=== PATIENT | male | born 1935 | race African-American/Black ===

== ENCOUNTER 2021-12-05 17:51 | Inpatient (IN) | payer MEDICARE, OTHER ==
[~2021-12-05] VITALS: Ht 180.3 cm; Wt 74.8 kg
[2021-12-05] MEDS ORDERED: SODIUM CHLORIDE 0.9% 1,000 ML IV ONE (18:30)
[2021-12-05 20:16] LABS: HEMATOCRIT. 39.1 % (42.0-52.0); HEMOGLOBIN. 13.2 g/dL (14.0-18.0); MEAN CORPUSCULAR HEMOGLOBIN 26.7 pg (28.0-32.0); MEAN CORPUSCULAR VOLUME 78.9 fL (80.0-94.0); MEAN PLATELET VOLUME 9.2 fl (7.4-10.4); PLATELET 267 x1000/uL (130-400); RED BLOOD CELL COUNT 4.96 mill/uL (4.7-6.1); RED CELL DISTRIBUTION WIDTH 14.5 % (11.6-14.6)
[2021-12-05 20:24] LABS: CHLORIDE 103 mEq/L (98-107)
[2021-12-05] MEDS ORDERED: CLINDAMYCIN 600 MG in DEXTROSE 5% WATER 50 ML IV ONE (21:00)
[2021-12-05] MEDS ORDERED: MAGNESIUM 1 G PREMIX 100 ML IV ONE (21:00)
[2021-12-05] MEDS ORDERED: CEFTRIAXONE 1 G PREMIX 50 ML IV ONE (21:00)
[2021-12-05] MEDS ORDERED: SODIUM CHLORIDE 0.9% 500 ML IV ONE (21:30)
[2021-12-05] MEDS ORDERED: CLINDAMYCIN 600MG PREMIX 50 ML IV NR (21:45)
[2021-12-05 23:26] LABS: PLATELET ESTIMATE NORMAL
[2021-12-06] MEDS ORDERED: CLONIDINE 0.1MG TABLET PO NR
[2021-12-06 00:47] LABS: CLARITY URINE CLEAR (CLEAR); COLOR URINE YELLOW (YELLOW); KETONES URINE 2+ (NEGATIVE); LEUKOCYTE ESTERASE URINE NEGATIVE (NEGATIVE); NITRITE URINE NEGATIVE (NEGATIVE); OCCULT BLOOD URINE 2+ (NEGATIVE); PH URINE 5.5 (4.5-8.0); PROTEIN URINE 2+ (NEGATIVE); SPECIFIC GRAVITY URINE 1.029 (1.005-1.030)
[2021-12-06 02:06] LABS: *AMPHETAMINES SCREEN URINE NEGATIVE (NEGATIVE); *BARBITURATES SCREEN URINE PRESUMTIVE POSITIVE (NEGATIVE)
[2021-12-06 02:07] LABS: *BENZODIAZEPINES SCREEN URINE NEGATIVE (NEGATIVE); *COCAINE SCREEN URINE NEGATIVE (NEGATIVE); CANNABINOID URINE SCREEN NEGATIVE (NEGATIVE); METHADONE URINE SCREEN NEGATIVE (NEGATIVE); OPIATES URINE SCREEN NEGATIVE (NEGATIVE); PHENCYCLIDINE URINE SCREEN NEGATIVE (NEGATIVE)
[2021-12-06 04:12] VITALS: BP 161/77
[2021-12-06] MEDS ORDERED: DEXTROSE 50% WATER 50ML SYRINGE IV PRN (05:30)
[2021-12-06] MEDS ORDERED: ACETAMINOPHEN 325MG TABLET PO PRN (05:30)
[2021-12-06] MEDS: INSULIN LISPRO 100 UNITS/ML SUBCUT SCH ×2 (06:40→12:30)
[2021-12-06] MEDS: BLOOD SUGAR DIAGNOSTIC STRIP TEST SCH ×2 (06:40→11:40)
[2021-12-06] MEDS ORDERED: PANTOPRAZOLE 40MG DR TABLET PO SCH (07:10)
[2021-12-06 08:00] VITALS: BP 153/91
[2021-12-06] MEDS ORDERED: HEPARIN 5000 UNITS/ML VIAL SUBCUT SCH (09:00)
[2021-12-06] MEDS ORDERED: ASPIRIN 81MG TABLET PO SCH (09:00)
[2021-12-06] MEDS ORDERED: LOSARTAN POTASSIUM 100 MG TABLET PO SCH (09:00)
[2021-12-06 10:00] VITALS: BP 147/86
[2021-12-06] MEDS ORDERED: HYDR25TA MT (10:39)
[2021-12-06] MEDS ORDERED: GABA-533 MT (10:39)
[2021-12-06] MEDS ORDERED: GLIP10TA10 MT (10:39)
[2021-12-06] MEDS ORDERED: TERA5CAP4 MT (10:39)
[2021-12-06] MEDS ORDERED: PRIM50TA31 PO (10:39)
[2021-12-06] MEDS ORDERED: MIRT-90 MT (10:39)
[2021-12-06] MEDS ORDERED: ALLO100T MT (10:39)
[2021-12-06] MEDS ORDERED: AMLO5TAB88 MT (10:39)
[2021-12-06] MEDS ORDERED: MAGN400C MT (10:39)
[2021-12-06] MEDS ORDERED: METO-539 MT (10:39)
[2021-12-06] MEDS ORDERED: MULT-1146 MT (10:39)
[2021-12-06] MEDS ORDERED: MONT10TA32 PO (10:39)
[2021-12-06] MEDS ORDERED: TRAZ-251 MT (10:39)
[2021-12-06] MEDS ORDERED: ATOR20TA65 PO (10:39)
[2021-12-06 11:21] LABS: BASOPHILS % 0.3 % (0.0-2.0); EOSINOPHILS % 0.6 % (0.0-5.0); HEMATOCRIT. 37.3 % (42.0-52.0); HEMOGLOBIN. 12.8 g/dL (14.0-18.0); LYMPHOCYTES % 9.8 % (20.0-50.0); MEAN CORPUSCULAR HEMOGLOBIN 26.6 pg (28.0-32.0); MEAN CORPUSCULAR VOLUME 77.6 fL (80.0-94.0); MEAN PLATELET VOLUME 9.1 fl (7.4-10.4); NEUTROPHILS % 80.3 % (40.0-76.0); PLATELET 288 x1000/uL (130-400); RED CELL DISTRIBUTION WIDTH 14.8 % (11.6-14.6)
[2021-12-06 12:07] LABS: CHLORIDE 108 mEq/L (98-107)
[2021-12-06 12:17] LABS: LDL CHOLESTEROL 61 mg/dL (5-100)
[2021-12-06 12:18] LABS: HDL CHOLESTEROL 24 mg/dL (40-59)
[2021-12-06] MEDS ORDERED: HALOPERIDOL LACTATE 5MG/ML VIAL IM SCH (12:45)
[2021-12-06] MEDS ORDERED: ATORVASTATIN CALCIUM 40MG TABLET PO SCH (21:00)
== END 2021-12-06 13:45 | disposition left against medical advice (07) | DRG 871 ==
LOC: ER 17:51 → MICUSO 21:22 → EDBEDREQ 21:25 → EDBEDREQTM 21:25 → 8WST 12-06 03:39
PROVIDERS: ADMIT Internal Medicine; ATTEND Internal Medicine
DX: A41.9 Sepsis, unspecified organism (principal); G93.41 Metabolic encephalopathy; M86.8X7 Other osteomyelitis, ankle and foot; D64.9 Anemia, unspecified; E11.621 Type 2 diabetes mellitus with foot ulcer; E11.65 Type 2 diabetes mellitus with hyperglycemia; E11.69 Type 2 diabetes mellitus with other specified complication; F03.90 Unspecified dementia, unspecified severity, without behavioral disturbance, psychotic disturbance, mood disturbance, and anxiety; I10 Essential (primary) hypertension; I49.3 Ventricular premature depolarization; Z20.822 Contact with and (suspected) exposure to COVID-19; L97.529 Non-pressure chronic ulcer of other part of left foot with unspecified severity; Z53.29 Procedure and treatment not carried out because of patient's decision for other reasons; N28.9 Disorder of kidney and ureter, unspecified; W18.39XA Other fall on same level, initial encounter; Y93.89 Activity, other specified; Z85.72 Personal history of non-Hodgkin lymphomas; Y92.89 Other specified places as the place of occurrence of the external cause; Y99.8 Other external cause status
CPT/HCPCS: 36415; 71045; 73521; 73630; 80048; 80053; 80061; 80305; 81003; 82962; 83605; 83880; 84484; 85025; 86140; 87426; 99285; J0696; J1630; J1644; J1815; J3475; J3490; J7030; J7040; J7060

== ENCOUNTER 2024-08-10 06:13 | Inpatient (IN) | payer MEDICARE, OTHER ==
[~2024-08-10] VITALS: Ht 172.7 cm; Wt 68.9 kg
[~2024-08-10 06:13] MED LIST: ALLO100T MT; AMLO5TAB88 MT; ATOR20TA65 PO; GABA-534 MT; GLIP10TA17 MT; HYDR25TA MT; MAGN400C MT; METO-539 MT; MIRT-90 MT; MONT-39 PO; MULT-1146 MT; PRIM50TA5 PO; TERA5CAP4 MT; TRAZ-251 MT
[2024-08-10 06:24] VITALS: O2SAT 100
[2024-08-10 07:41] LABS: HEMATOCRIT. 34.1 % (42.0-52.0); HEMOGLOBIN. 10.7 g/dL (14.0-18.0); MEAN CORPUSCULAR HEMOGLOBIN 27.2 pg (28.0-32.0); MEAN CORPUSCULAR HGB CONC 31.3 g/dL (31.0-37.0); MEAN CORPUSCULAR VOLUME 86.7 fL (80.0-94.0); MEAN PLATELET VOLUME 9.9 fl (7.4-10.4); PLATELET 241 x1000/uL (130-400); RED BLOOD CELL COUNT 3.93 mill/uL (4.7-6.1); WHITE BLOOD COUNT 13.5 x1000/uL (4.5-11.0)
[2024-08-10 07:51] LABS: CARBON DIOXIDE 27 mEq/L (21-32); CHLORIDE 102 mEq/L (98-107); POTASSIUM 3.4 mEq/L (3.5-5.1); SODIUM 140 mEq/L (136-145)
[2024-08-10 07:52] LABS: CALCIUM 9.5 mg/dL (8.7-10.4)
[2024-08-10 07:57] LABS: CREATININE 1.8 mg/dL (0.6-1.3); GLUCOSE 251 mg/dL (70-105); UREA NITROGEN BLOOD 22 mg/dL (9-23)
[2024-08-10 07:58] LABS: TROPONIN I HIGH SENSITIVITY 14 ng/L (3.0-53)
[2024-08-10 09:08] LABS: DIFFERENTIAL COMMENT 1
[2024-08-10] MEDS ORDERED: HYDROCODONE/ACETAMINOPHEN 5/325MG TABLET PO PRN (16:00)
[2024-08-10] MEDS ORDERED: IPRATROPIUM/ALBUTEROL 0.5-3(2.5)MG/3ML NEB HHN PRN (16:00)
[2024-08-10] MEDS ORDERED: NALOXONE HCL 0.4MG/ML VIAL IV PRN (16:00)
[2024-08-10] MEDS ORDERED: ONDANSETRON HCL 4MG/2ML INJ IV PRN (16:00)
[2024-08-10 16:16] VITALS: BP 157/74; PULSE 89; RESP 20; TEMP 36.5848
[2024-08-10 16:55] LABS: ANISOCYTOSIS 1+; PLATELET ESTIMATE NN
[2024-08-10 17:00] VITALS: BP 156/77; PULSE 83; RESP 16; O2SAT 99
[2024-08-10] MEDS: GABAPENTIN 400MG CAPSULE PO SCH (17:15)
[2024-08-10] MEDS: PRIMIDONE 50MG TABLET PO SCH (17:28)
[2024-08-10] MEDS: ENOXAPARIN 30MG/0.3ML SYR SUBCUT SCH (17:29)
[2024-08-10] MEDS: AMLODIPINE 5MG TABLET PO SCH (17:31)
[2024-08-10 20:00] VITALS: BP 152/58; PULSE 80; RESP 17; TEMP 36.44736; O2SAT 98
[2024-08-10] MEDS ORDERED: DEXTROSE 50% WATER 50ML SYRINGE IV PRN (20:15)
[2024-08-10] MEDS: BLOOD SUGAR DIAGNOSTIC STRIP TEST SCH (21:00)
[2024-08-10] MEDS: CEFTRIAXONE 1GM/50ML 50 ML IV SCH (21:42)
[2024-08-10] MEDS: TERAZOSIN HCL 5MG CAPSULE PO SCH (21:43)
[2024-08-10] MEDS: ATORVASTATIN CALCIUM 20MG TABLET PO SCH (21:43)
[2024-08-10] MEDS: INSULIN LISPRO 100 UNITS/ML SUBCUT SCH (22:04)
[2024-08-10 22:34] LABS: CLARITY URINE CLEAR (CLEAR); COLOR URINE DARK YELLOW (YELLOW); GLUCOSE URINE 2+ (NEGATIVE); KETONES URINE 1+ (NEGATIVE); LEUKOCYTE ESTERASE URINE NEGATIVE (NEGATIVE); NITRITE URINE NEGATIVE (NEGATIVE); OCCULT BLOOD URINE NEGATIVE (NEGATIVE); PROTEIN URINE 2+ (NEGATIVE)
[2024-08-10 22:49] LABS: BACTERIA URINE 1+; RBC URINE 0-2 /hpf (0-2); SQUAMOUS EPITHELIAL CELL URINE FEW /lpf (RARE/1+); WBC URINE 0-2 /hpf (0-2)
[2024-08-11] VITALS (7 sets, daily range): BP systolic 142–156; BP diastolic 73–89; PULSE 83–100; RESP 17–20; TEMP 36.44736–36.89184; O2SAT 95–100
[2024-08-11 07:31] LABS: CHLORIDE 106 mEq/L (98-107); POTASSIUM 3.3 mEq/L (3.5-5.1); SODIUM 143 mEq/L (136-145)
[2024-08-11 07:32] LABS: CARBON DIOXIDE 30 mEq/L (21-32)
[2024-08-11 07:33] LABS: BASOPHILS % 0.5 % (0.0-2.0); CALCIUM 9.4 mg/dL (8.7-10.4); EOSINOPHILS % 2.8 % (0.0-5.0); HEMATOCRIT. 33.5 % (42.0-52.0); HEMOGLOBIN. 10.6 g/dL (14.0-18.0); LYMPHOCYTES % 16.8 % (20.0-50.0); MEAN CORPUSCULAR HEMOGLOBIN 27.3 pg (28.0-32.0); MEAN CORPUSCULAR HGB CONC 31.5 g/dL (31.0-37.0); MEAN CORPUSCULAR VOLUME 86.5 fL (80.0-94.0); MEAN PLATELET VOLUME 9.5 fl (7.4-10.4); MONOCYTES % 9.7 % (2.0-8.0); NEUTROPHILS % 70.2 % (40.0-76.0); PLATELET 255 x1000/uL (130-400); RED BLOOD CELL COUNT 3.88 mill/uL (4.7-6.1); RED CELL DISTRIBUTION WIDTH 15.9 % (11.6-14.6); WHITE BLOOD COUNT 8.8 x1000/uL (4.5-11.0)
[2024-08-11 07:35] LABS: CREATINE KINASE MB FRACTION 2.2 ng/mL (0.5-3.6); TROPONIN I HIGH SENSITIVITY 17 ng/L (3.0-53)
[2024-08-11 07:37] LABS: CREATININE 1.4 mg/dL (0.6-1.3); GLUCOSE 162 mg/dL (70-105)
[2024-08-11 07:38] LABS: UREA NITROGEN BLOOD 18 mg/dL (9-23)
[2024-08-11 07:39] LABS: CREATINE KINASE 243 IU/L (46-171)
[2024-08-11 07:40] LABS: PHOSPHORUS 2.6 mg/dL (2.5-4.9)
[2024-08-11] MEDS: ALLOPURINOL 100 MG TABLET PO SCH (08:49)
[2024-08-11] MEDS: POTASSIUM CHLORIDE 20MEQ TABLET SR PO NR (08:54)
[2024-08-11] MEDS ORDERED: DONE-53 PO (16:12)
[2024-08-11] MEDS ORDERED: EDOX30TA2 PO (16:12)
[2024-08-11] MEDS ORDERED: LEVO25TA7 PO (16:12)
[2024-08-11] MEDS ORDERED: INSU100I95 SQ (16:15)
[2024-08-11] MEDS: ENOXAPARIN 40MG/0.4ML SYR SUBCUT NR (18:45)
[2024-08-11 22:27] LABS: CREATINE KINASE MB FRACTION 1.6 ng/mL (0.5-3.6)
[2024-08-11 22:36] LABS: PROTHROMBIN TIME 11.3 sec (9.6-11.0)
[2024-08-12] VITALS: BP_SYST 142; BP_SYST 148; BP_SYST 92; BP_DIAS 51; BP_DIAS 70; BP_DIAS 75; PULSE 94; RESP 20; TEMP 36.6696; O2SAT 99
[2024-08-12 04:00] VITALS: PULSE 88; RESP 20; TEMP 36.9474; O2SAT 98
[2024-08-12 08:00] VITALS: BP 129/86; PULSE 90; RESP 18; TEMP 37.00296; O2SAT 98
[2024-08-12] MEDS: ENOXAPARIN 80MG/0.8ML SYR SUBCUT SCH (08:46)
[2024-08-12 12:00] VITALS: BP 136/80; PULSE 87; RESP 20; TEMP 37.00296; O2SAT 97
[2024-08-12 16:00] VITALS: BP 128/79; PULSE 89; RESP 18; TEMP 37.11408; O2SAT 99
[2024-08-12 20:00] VITALS: BP 159/82; PULSE 92; RESP 18; TEMP 36.55848; O2SAT 99
[2024-08-13] VITALS: BP 119/85; PULSE 97; RESP 18; TEMP 37.05852; O2SAT 100
[2024-08-13 04:00] VITALS: BP 159/88; PULSE 91; RESP 18; TEMP 36.50292; O2SAT 99
[2024-08-13 07:13] LABS: POTASSIUM 4.3 mEq/L (3.5-5.1)
[2024-08-13 07:15] LABS: CALCIUM 9.1 mg/dL (8.7-10.4)
[2024-08-13 07:19] LABS: BASOPHILS % 0.5 % (0.0-2.0); CREATININE 1.5 mg/dL (0.6-1.3); DIFFERENTIAL COMMENT 0; EOSINOPHILS % 0.9 % (0.0-5.0); HEMATOCRIT. 32.4 % (42.0-52.0); HEMOGLOBIN. 10.4 g/dL (14.0-18.0); LYMPHOCYTES % 16.1 % (20.0-50.0); MEAN CORPUSCULAR HEMOGLOBIN 27.9 pg (28.0-32.0); MEAN CORPUSCULAR HGB CONC 32.2 g/dL (31.0-37.0); MEAN CORPUSCULAR VOLUME 86.6 fL (80.0-94.0); MEAN PLATELET VOLUME 9.2 fl (7.4-10.4); MONOCYTES % 8.5 % (2.0-8.0); PLATELET 239 x1000/uL (130-400); RED BLOOD CELL COUNT 3.74 mill/uL (4.7-6.1); RED CELL DISTRIBUTION WIDTH 17.1 % (11.6-14.6); WHITE BLOOD COUNT 9.6 x1000/uL (4.5-11.0)
[2024-08-13 08:00] VITALS: BP 151/71; PULSE 84; RESP 18; TEMP 36.16956; O2SAT 95
[2024-08-13 12:00] VITALS: BP 135/72; PULSE 96; RESP 18; TEMP 36.16956; O2SAT 98
[2024-08-13 16:00] VITALS: BP 152/68; PULSE 90; RESP 18; TEMP 36.50292; O2SAT 99
[2024-08-13 20:00] VITALS: BP 146/71; PULSE 105; RESP 18; TEMP 36.50292; O2SAT 100
[2024-08-14] VITALS: BP_SYST 160; BP_DIAS 73; BP_DIAS 75; PULSE 105; RESP 18; TEMP 36.89184; O2SAT 100
[2024-08-14 04:00] VITALS: BP 138/75; PULSE 95; RESP 18; TEMP 36.28068; O2SAT 97
[2024-08-14 08:00] VITALS: BP 167/69; PULSE 83; RESP 18; TEMP 36.61404; O2SAT 98
[2024-08-14 12:00] VITALS: BP 154/66; PULSE 92; RESP 19; TEMP 36.72516; O2SAT 100
[2024-08-14 20:00] VITALS: BP 160/60; PULSE 94; RESP 18; TEMP 36.16956; O2SAT 98
[2024-08-15] VITALS (7 sets, daily range): BP systolic 132–156; BP diastolic 63–87; PULSE 78–89; RESP 18–20; TEMP 36.22512–36.9474; O2SAT 95–100
[2024-08-16] VITALS: BP 134/73; PULSE 90; RESP 20; TEMP 36.3918; O2SAT 100
[2024-08-16 04:00] VITALS: BP 154/87; PULSE 77; RESP 20; TEMP 36.78072; O2SAT 100
[2024-08-16 08:10] VITALS: BP 163/70; PULSE 83; RESP 18; TEMP 36.78072; O2SAT 99
[2024-08-16] MEDS: ENOXAPARIN 60MG/0.6ML SYR SUBCUT SCH (08:38)
[2024-08-16 12:10] VITALS: BP 146/69; PULSE 87; RESP 20; TEMP 36.61404; O2SAT 98
[2024-08-16 15:52] VITALS: BP 136/74; PULSE 91; RESP 19; TEMP 36.61404; O2SAT 97
[2024-08-16 20:00] VITALS: BP 158/81; PULSE 92; RESP 19; TEMP 36.50292; O2SAT 97
[2024-08-16] MEDS: ATORVASTATIN CALCIUM 20MG TABLET PO SCH (21:36)
[2024-08-17 04:00] VITALS: BP 159/88; PULSE 84; RESP 18; TEMP 36.78072; O2SAT 98
[2024-08-17 12:06] VITALS: BP 133/66; PULSE 84; RESP 18; TEMP 36.55848; O2SAT 98
[2024-08-17 16:10] VITALS: BP 140/81; PULSE 92; RESP 20; TEMP 36.6696; O2SAT 97
[2024-08-17 20:00] VITALS: BP 139/87; PULSE 87; RESP 18; TEMP 36.28068; O2SAT 98
[2024-08-18] VITALS: BP 159/79; PULSE 83; RESP 19; TEMP 36.55848; O2SAT 100
[2024-08-18] MEDS: ACETAMINOPHEN 325MG TABLET PO PRN (02:49)
[2024-08-18 04:00] VITALS: BP 152/88; PULSE 70; RESP 18; TEMP 36.6696; O2SAT 100
[2024-08-18 08:00] VITALS: BP_SYST 135; BP_SYST 15; BP_DIAS 77; PULSE 95; RESP 22; TEMP 36.44736; O2SAT 98
[2024-08-18 12:00] VITALS: BP 128/79; PULSE 69; RESP 18; TEMP 35.61396; O2SAT 95
[2024-08-18 16:00] VITALS: BP 118/78; PULSE 88; RESP 16; TEMP 36.61404; O2SAT 100
[2024-08-18 20:00] VITALS: BP 142/89; PULSE 84; RESP 18; TEMP 36.55848; O2SAT 100
[2024-08-19] VITALS: BP 135/68; PULSE 87; RESP 18; TEMP 36.22512; O2SAT 100
[2024-08-19 04:00] VITALS: BP 128/62; PULSE 82; RESP 19; TEMP 36.55848; O2SAT 100
[2024-08-19 08:00] VITALS: BP 156/60; PULSE 77; RESP 18; TEMP 36.89184; O2SAT 95
[2024-08-19 12:00] VITALS: BP 152/61; PULSE 82; RESP 16; TEMP 37.16964; O2SAT 97
[2024-08-19 16:00] VITALS: BP 125/89; PULSE 94; RESP 16; TEMP 36.16956; O2SAT 100
[2024-08-19 20:00] VITALS: BP 138/71; PULSE 100; RESP 20; TEMP 36.28068; O2SAT 97
[2024-08-20] VITALS: BP 135/74; PULSE 94; RESP 20; TEMP 36.22512; O2SAT 98
[2024-08-20 04:00] VITALS: BP 135/80; PULSE 83; RESP 20; TEMP 36.33624; O2SAT 95
[2024-08-20 08:00] VITALS: BP 145/85; PULSE 79; RESP 18; TEMP 36.3918; O2SAT 100
[2024-08-20 12:00] VITALS: BP 152/81; PULSE 86; RESP 18; TEMP 36.50292; O2SAT 96
[2024-08-20 16:00] VITALS: BP 122/77; PULSE 95; RESP 18; TEMP 36.3918; O2SAT 99
[2024-08-20 20:00] VITALS: BP 141/84; PULSE 78; RESP 20; TEMP 36.28068; O2SAT 95
[2024-08-21] VITALS: BP 121/63; PULSE 95; RESP 18; TEMP 36.55848; O2SAT 99
[2024-08-21 04:00] VITALS: BP 127/77; PULSE 86; RESP 18; TEMP 36.114; O2SAT 97
[2024-08-21 08:00] VITALS: BP 156/79; PULSE 89; RESP 20; TEMP 36.61404; O2SAT 97
[2024-08-21 12:00] VITALS: BP 151/64; PULSE 61; RESP 18; TEMP 36.6696; O2SAT 97
[2024-08-21 16:00] VITALS: BP 124/70; PULSE 84; RESP 16; TEMP 36.55848; O2SAT 96
[2024-08-21 20:00] VITALS: BP 165/83; PULSE 90; RESP 18; TEMP 36.3918; O2SAT 98
[2024-08-22] VITALS: BP 134/71; PULSE 99; RESP 18; TEMP 36.50292; O2SAT 99
[2024-08-22 04:00] VITALS: BP 127/64; PULSE 94; RESP 18; TEMP 36.28068; O2SAT 99
[2024-08-22 08:00] VITALS: BP 130/79; PULSE 77; RESP 18; TEMP 36.44736
[2024-08-22 12:00] VITALS: BP 156/99; PULSE 81; RESP 20; TEMP 37.05852; O2SAT 94
[2024-08-22 16:00] VITALS: BP 129/90; PULSE 83; RESP 16; TEMP 36.50292; O2SAT 99
[2024-08-22 20:00] VITALS: BP 150/89; PULSE 79; RESP 18; TEMP 37.00296; O2SAT 99
[2024-08-23] VITALS: BP 140/81; PULSE 80; RESP 18; TEMP 36.89184; O2SAT 100
[2024-08-23 04:00] VITALS: BP 144/89; PULSE 87; RESP 18; TEMP 36.78072; O2SAT 100
[2024-08-23 08:15] VITALS: BP 145/83; PULSE 87; RESP 18; TEMP 36.44736; O2SAT 98
[2024-08-23 11:13] LABS: HEMATOCRIT 38.2 % (42.0-52.0); HEMOGLOBIN 11.8 g/dL (14.0-18.0); MEAN CORPUSCULAR HEMOGLOBIN 27.6 pg (28.0-32.0); MEAN CORPUSCULAR HGB CONC 30.9 g/dL (31.0-37.0); MEAN CORPUSCULAR VOLUME 89.3 fL (80.0-94.0); PLATELET 159 x1000/uL (130-400); RED BLOOD CELL COUNT 4.28 mill/uL (4.7-6.1); RED CELL DISTRIBUTION WIDTH 20.9 % (11.6-14.6); WHITE BLOOD COUNT 5.9 x1000/uL (4.5-11.0)
[2024-08-23 11:17] LABS: CHLORIDE 107 mEq/L (98-107); POTASSIUM 3.6 mEq/L (3.5-5.1); SODIUM 142 mEq/L (136-145)
[2024-08-23 11:18] LABS: CARBON DIOXIDE 25 mEq/L (21-32)
[2024-08-23 11:19] LABS: CALCIUM 9.2 mg/dL (8.7-10.4)
[2024-08-23 11:24] LABS: CREATININE 1.2 mg/dL (0.6-1.3); GLUCOSE 199 mg/dL (70-105); UREA NITROGEN BLOOD 13 mg/dL (9-23)
[2024-08-23 12:08] VITALS: BP 152/78; PULSE 89; RESP 20; TEMP 36.6696; O2SAT 100
[2024-08-23 15:50] VITALS: BP 156/84; PULSE 88; RESP 20; TEMP 36.50292; O2SAT 98
[2024-08-23 20:00] VITALS: BP 148/85; PULSE 84; RESP 19; TEMP 36.9474; O2SAT 98
[2024-08-23] MEDS: CLONIDINE 0.1MG TABLET PO SCH (21:08)
[2024-08-24] VITALS: BP 112/67; PULSE 93; RESP 19; TEMP 36.28068; O2SAT 98
[2024-08-24 04:00] VITALS: BP 134/67; PULSE 75; RESP 19; TEMP 36.28068; O2SAT 98
[2024-08-24 08:27] VITALS: BP 137/80; PULSE 70; RESP 18; TEMP 36.55848; O2SAT 99
[2024-08-24 11:58] VITALS: BP_SYST 137; BP_SYST 143; BP_DIAS 76; BP_DIAS 80; PULSE 70; PULSE 73; RESP 18; RESP 20; TEMP 36.44736; TEMP 36.55848; O2SAT 99
[2024-08-24 20:00] VITALS: BP 125/73; PULSE 73; RESP 18; TEMP 36.28068; O2SAT 95
[2024-08-24] MEDS: DIVALPROEX SODIUM 250MG DR TABLET PO SCH (21:35)
[2024-08-24] MEDS: QUETIAPINE FUMARATE 50MG TABLET PO SCH (21:35)
[2024-08-25] VITALS: BP 133/69; PULSE 102; RESP 18; TEMP 36.16956; O2SAT 96
[2024-08-25 04:00] VITALS: BP 149/83; PULSE 76; RESP 17; TEMP 36.55848; O2SAT 100
[2024-08-25 08:00] VITALS: BP 156/79; PULSE 68; RESP 20; TEMP 36.22512; O2SAT 98
[2024-08-25 12:00] VITALS: BP 160/83; PULSE 70; RESP 20; TEMP 36.22512; O2SAT 99
[2024-08-25 16:00] VITALS: BP 139/79; PULSE 78; RESP 20; TEMP 36.00288; O2SAT 98
[2024-08-25 20:00] VITALS: BP 159/72; PULSE 68; RESP 18; TEMP 36.22512; O2SAT 98
[2024-08-26] VITALS: BP 124/66; PULSE 93; RESP 18; TEMP 36.3918; O2SAT 98
[2024-08-26 04:00] VITALS: BP 158/79; PULSE 76; RESP 18; TEMP 36.22512; O2SAT 97
[2024-08-26 08:00] VITALS: BP 131/76; PULSE 86; RESP 14; TEMP 36.6696; O2SAT 99
[2024-08-26 20:00] VITALS: BP 142/71; PULSE 72; RESP 18; TEMP 36.72516; O2SAT 99
[2024-08-27 04:00] VITALS: BP 152/81; PULSE 62; RESP 18; TEMP 36.89184; O2SAT 97
[2024-08-27 08:00] VITALS: BP 140/73; PULSE 64; RESP 20; TEMP 36.28068
[2024-08-27 12:00] VITALS: BP 168/77; PULSE 78; RESP 19; TEMP 36.22512
[2024-08-27 16:00] VITALS: BP 145/72; PULSE 76; RESP 18; TEMP 36.16956
[2024-08-28] VITALS: BP 136/73; PULSE 75; RESP 18; TEMP 36.28068; O2SAT 98
[2024-08-28 04:00] VITALS: BP 162/78; PULSE 71; RESP 19; TEMP 35.89176; O2SAT 97
[2024-08-28 08:00] VITALS: BP 136/73; PULSE 61; RESP 19; TEMP 36.44736; O2SAT 99
[2024-08-28 12:00] VITALS: BP 131/75; PULSE 69; RESP 20; TEMP 36.28068; O2SAT 99
[2024-08-28 16:00] VITALS: BP 135/69; PULSE 77; RESP 20; TEMP 36.44736; O2SAT 98
[2024-08-28 20:00] VITALS: BP 163/81; PULSE 86; RESP 20; TEMP 36.44736; O2SAT 98
[2024-08-29 04:00] VITALS: BP 165/72; PULSE 89; RESP 20; TEMP 36.50292; O2SAT 98
[2024-08-29 08:00] VITALS: BP 153/63; PULSE 74; RESP 18; TEMP 36.44736; O2SAT 97
[2024-08-29 12:00] VITALS: BP 157/81; PULSE 73; RESP 19; TEMP 36.05844; O2SAT 99
[2024-08-29 16:00] VITALS: BP 140/71; PULSE 67; RESP 19; TEMP 36.114; O2SAT 97
[2024-08-29 20:00] VITALS: BP 155/33; PULSE 79; RESP 18; TEMP 36.3918; O2SAT 93
[2024-08-30] VITALS: BP 122/74; PULSE 96; RESP 18; TEMP 36.33624; O2SAT 100
[2024-08-30 04:00] VITALS: BP 121/75; PULSE 98; RESP 18; TEMP 36.28068; O2SAT 100
[2024-08-30 08:00] VITALS: BP 154/69; PULSE 94; RESP 17; TEMP 36.6696; O2SAT 97
[2024-08-30 12:00] VITALS: BP 122/70; PULSE 94; RESP 18; TEMP 36.44736; O2SAT 100
[2024-08-30 16:00] VITALS: BP 134/76; RESP 18; TEMP 36.33624; O2SAT 95
[2024-08-30] MEDS: HALOPERIDOL LACTATE 5MG/ML VIAL IM PRN (16:32)
[2024-08-30 20:00] VITALS: BP 150/84; PULSE 79; RESP 18; TEMP 36.3918; O2SAT 100
[2024-08-30] MEDS: QUETIAPINE FUMARATE 50MG TABLET PO SCH (21:00)
[2024-08-31 04:00] VITALS: BP 162/81; PULSE 81; RESP 18; TEMP 36.50292; O2SAT 100
[2024-08-31 07:57] VITALS: BP 151/78; PULSE 76; RESP 18; TEMP 36.44736; O2SAT 99
[2024-08-31 12:00] VITALS: BP 129/63; PULSE 74; RESP 18; TEMP 36.33624; O2SAT 99
[2024-08-31 16:00] VITALS: BP 126/57; PULSE 76; RESP 20; TEMP 36.16956; O2SAT 97
[2024-08-31 20:00] VITALS: BP 123/54; PULSE 105; RESP 18; TEMP 36.22512; O2SAT 96
[2024-09-01 08:00] VITALS: BP 141/60; PULSE 74; RESP 19; TEMP 36.16956; O2SAT 98
[2024-09-01 12:00] VITALS: BP 109/61; PULSE 74; RESP 20; TEMP 36.22512; O2SAT 98
[2024-09-01 16:00] VITALS: BP 117/54; PULSE 76; RESP 20; TEMP 36.22512; O2SAT 98
[2024-09-01 20:00] VITALS: BP 135/83; PULSE 52; RESP 18; TEMP 36.6696; O2SAT 99
[2024-09-01] MEDS: ENOXAPARIN 60MG/0.6ML SYR SUBCUT SCH (22:56)
[2024-09-02] VITALS: BP 139/74; PULSE 90; RESP 18; TEMP 36.114; O2SAT 96
[2024-09-02 04:00] VITALS: BP 150/75; PULSE 69; RESP 18; TEMP 36.3918; O2SAT 99
[2024-09-02 08:00] VITALS: BP 127/71
[2024-09-02 12:00] VITALS: BP 138/71
[2024-09-02 20:00] VITALS: BP 150/85; PULSE 85; RESP 18; TEMP 36.3918; O2SAT 99
[2024-09-03] VITALS: BP 148/88; PULSE 91; RESP 19; TEMP 35.94732; O2SAT 98
[2024-09-03 04:00] VITALS: BP 136/68; PULSE 68; RESP 19; TEMP 36.50292; O2SAT 96
[2024-09-03 08:00] VITALS: BP 128/71; PULSE 63; RESP 18; TEMP 36.22512; O2SAT 98
[2024-09-03 12:00] VITALS: BP 136/71; PULSE 80; RESP 19; TEMP 36.28068; O2SAT 98
[2024-09-03] MEDS: DIVALPROEX SODIUM 250MG DR TABLET PO SCH (13:14)
[2024-09-03 16:00] VITALS: BP 131/71; PULSE 83; RESP 19; TEMP 36.28068; O2SAT 98
[2024-09-03 20:00] VITALS: BP 111/66; PULSE 110; RESP 18; TEMP 36.05844; O2SAT 99
[2024-09-04] VITALS: BP 118/72; PULSE 112; RESP 17; TEMP 36.22512; O2SAT 95
[2024-09-04 08:00] VITALS: BP 134/54; PULSE 63; RESP 17; TEMP 36.72516; O2SAT 98
[2024-09-04 12:00] VITALS: BP 166/79; PULSE 70; RESP 18; TEMP 36.50292; O2SAT 98
[2024-09-04 16:00] VITALS: BP 131/71; PULSE 67; RESP 17; TEMP 36.44736; O2SAT 98
[2024-09-04 20:00] VITALS: BP 120/65; PULSE 63; RESP 18; TEMP 36.44736; O2SAT 97
[2024-09-05] VITALS: BP 125/65; PULSE 74; RESP 20; TEMP 37.00296; O2SAT 96
[2024-09-05 04:00] VITALS: BP 122/62; PULSE 70; RESP 19; TEMP 36.6696; O2SAT 97
[2024-09-05 08:00] VITALS: BP 157/65; PULSE 96; RESP 19; TEMP 36.28068; O2SAT 98
[2024-09-05] MEDS: MULTIVITAMINS,THER W-MINERALS TABLET PO SCH (08:08)
[2024-09-05 12:00] VITALS: BP 125/62; PULSE 75; RESP 16; TEMP 36.33624; O2SAT 97
[2024-09-05 16:00] VITALS: BP 108/65; PULSE 84; RESP 20; TEMP 36.16956; O2SAT 20
[2024-09-05 20:00] VITALS: BP 112/68
[2024-09-06 04:00] VITALS: BP 148/85
[2024-09-06 08:00] VITALS: BP 118/89; PULSE 85; RESP 18; TEMP 36.114; O2SAT 100
[2024-09-06 12:00] VITALS: BP 153/70; PULSE 78; RESP 18; TEMP 36.6696; O2SAT 100
[2024-09-06 16:00] VITALS: BP 194/72; PULSE 73; RESP 20; TEMP 36.6696; O2SAT 100
[2024-09-06 20:00] VITALS: BP 134/76; PULSE 119; RESP 18; TEMP 36.6696; O2SAT 97
[2024-09-07 04:00] VITALS: BP 142/76; PULSE 85; RESP 20; TEMP 36.3918; O2SAT 96
[2024-09-07 08:00] VITALS: BP 144/92; PULSE 81; RESP 20; TEMP 36.114; O2SAT 99
[2024-09-07 12:08] VITALS: BP 146/85; PULSE 81; RESP 20; TEMP 36.61404; O2SAT 100
[2024-09-07 16:25] VITALS: BP 147/70; PULSE 84; RESP 20; TEMP 36.6696; O2SAT 100
[2024-09-07 20:00] VITALS: BP 146/76; PULSE 79; RESP 18; TEMP 36.78072; O2SAT 100
[2024-09-08] VITALS: BP 125/84; PULSE 109; RESP 18; TEMP 36.50292; O2SAT 98
[2024-09-08 08:00] VITALS: BP 155/81; PULSE 71; RESP 18; TEMP 36.28068; O2SAT 95
[2024-09-08 12:00] VITALS: BP 161/74; PULSE 86; RESP 18; TEMP 36.72516; O2SAT 98
[2024-09-08] MEDS ORDERED: HYDRALAZINE 10 MG in SODIUM CHLORIDE 0.9% 49.5 ML IV PRN (14:30)
[2024-09-08] MEDS ORDERED: HYDRALAZINE 20MG/ML VIAL IV PRN (14:30)
[2024-09-08 16:00] VITALS: BP 105/58; PULSE 92; RESP 18; TEMP 36.61404; O2SAT 98
== END 2024-09-08 20:40 | disposition home health service (06) | DRG 74 ==
LOC: ER 06:13 → 6EST 12:52 → EDBEDREQTM 12:54 → EDBEDREQ 12:54 → 7WST 17:20 → 6WST 08-24 12:01
PROVIDERS: ADMIT Internal Medicine; ATTEND Internal Medicine
DX: G90.89 Other disorders of autonomic nervous system (principal); F03.918 Unspecified dementia, unspecified severity, with other behavioral disturbance; I82.411 Acute embolism and thrombosis of right femoral vein; I82.431 Acute embolism and thrombosis of right popliteal vein; F03.93 Unspecified dementia, unspecified severity, with mood disturbance; G95.89 Other specified diseases of spinal cord; C61 Malignant neoplasm of prostate; I10 Essential (primary) hypertension; F39 Unspecified mood [affective] disorder; E11.621 Type 2 diabetes mellitus with foot ulcer; S80.812A Abrasion, left lower leg, initial encounter; E87.6 Hypokalemia; E78.5 Hyperlipidemia, unspecified; N40.0 Benign prostatic hyperplasia without lower urinary tract symptoms; R32 Unspecified urinary incontinence; F41.9 Anxiety disorder, unspecified; G47.00 Insomnia, unspecified; Z91.199 Patient's noncompliance with other medical treatment and regimen due to unspecified reason; Z86.711 Personal history of pulmonary embolism; Z85.72 Personal history of non-Hodgkin lymphomas; Z85.46 Personal history of malignant neoplasm of prostate; Z79.899 Other long term (current) drug therapy; Z79.84 Long term (current) use of oral hypoglycemic drugs; Z79.01 Long term (current) use of anticoagulants; Z79.4 Long term (current) use of insulin; W18.30XA Fall on same level, unspecified, initial encounter; Y93.89 Activity, other specified; Y92.89 Other specified places as the place of occurrence of the external cause; Y99.8 Other external cause status
CPT/HCPCS: 36415; 71045; 71250; 74176; 78580; 80048; 81003; 82550; 82553; 82962; 83735; 84100; 84153; 84484; 85025; 85027; 93005; 93306; 93970; 97116; 97162; 99285; A4606; C1893; J0696; J1630; J1650; J1815